=== PATIENT | female | born 1955 | race Caucasian/White ===

== ENCOUNTER 2022-03-29 12:52 | Outpatient (CLI) | payer MEDICARE, SELFPAY ==
[2022-03-29 13:32] LABS: Hematocrit 38.9 % (37.0-47.0); Hemoglobin 12.6 g/dL (12.0-15.0); Mean Corpuscular HGB Conc 32.4 g/dl (32-36); Mean Corpuscular Hemoglobin 29.2 pg (26-34); Mean Platelet Volume 10.2 fl (7.4-10.4); Platelet Count Result 313 k/mm3 (150-375); Red Blood Count 4.32 M/mm3 (4.2-5.4); Red Cell Distribution Width 12.7 % (11.5-14.5); White Blood Count 7.8 K/mm3 (4.5-10.0)
[2022-03-29 15:48] LABS: Basophils Absolute Auto 0.1 K/mm3 (0.0-0.1); Basophils Percent Auto 0.7 % (0.2-1.2); Eosinophils Absolute Auto 0.1 K/mm3 (0-0.3); Eosinophils Percent Auto 1.9 % (0-4.4); Immature Granulocyte Absolute 0.02 K/mm3 (0.00-0.031); Immature Granulocyte Percent A 0.3 % (0-0.5); Lymphocytes Absolute Auto 1.27 K/mm3 (0.9-3.2); Lymphocytes Percent Auto 16.9 % (18.3-44.2); Monocytes Absolute Auto 0.5 K/mm3 (0.1-0.6); Monocytes Percent Auto 6.2 % (2.6-8.5); Neutrophils Absolute Auto 5.6 K/mm3 (1.3-6.7)
== END 2022-03-29 12:53 | disposition home or self-care (01) ==
LOC: ANHLAB 13:00
PROVIDERS: PCP Family Medicine
DX: K35.21 Acute appendicitis with generalized peritonitis, with abscess (principal); Z90.49 Acquired absence of other specified parts of digestive tract
CPT/HCPCS: 36415; 85025; 85027

== ENCOUNTER 2022-03-31 12:39 | Outpatient (CLI) | payer MEDICARE, SELFPAY ==
--- NOTE | ~2022-03-31 | CT_ITS ---
EXAMINATION: CT abdomen pelvis w con INDICATION: History of appendectomy and abscess TECHNIQUE: Computed tomographic images of the abdomen and pelvis were obtained after the administrati on of 100 cc of Omnipaque 350 intravenous contrast. The dose-length product (DLP) was 787.04 mGy-cm. Automated exposure control and iterative reconstruction technique were employed. COMPARISON: None available FINDINGS: Minimal dependent atelectasis is present in the lung bases. The heart size is normal. There is an 11 mm hypoattenuating lesion in liver segment [place]. The gallbladder is surgically absent. There is mild enlargement of the common bile duct and central intrahepatic ducts which is likely due to po st cholecystectomy state. The spleen, pancreas, and adrenal glands are normal. The kidneys are unrema rkable. No pathologically enlarged abdominal or pelvic lymph nodes are identified. There are changes of appendectomy. No discrete pelvic abscess is identified. There is hyperattenuating material in the cecum. Hyperattenuating material adjacent to the cecum and terminal ileum could reflect suture materi al. Colonic diverticulosis is present without evidence of diverticulitis. There is moderate lumbar sp ondylosis. There are umbilical and periumbilical hernias containing fat. IMPRESSION: 1. No definite pelvic abscess identified. Comparison with prior imaging would be helpful. Reviewed, dictated and finalized at location A. IMPRESSION: 1. No definite pelvic abscess identified. Comparison with prior imaging would b e helpful.
[2022-03-31 14:45] LABS: Estimated Glomerular Filt Rate > 60
== END 2022-03-31 12:40 | disposition home or self-care (01) ==
PROVIDERS: PCP Family Medicine
DX: Z90.49 Acquired absence of other specified parts of digestive tract (principal)
CPT/HCPCS: 74177; Q9967